=== PATIENT | female | born 1955 | race Caucasian/White ===

== ENCOUNTER 2022-10-12 06:21 | Inpatient (IN) | payer MEDICARE ==
[2022-10-12] MEDS ORDERED: Bupivacaine HCl 0.5%/Epinephrine 1:200,000/PF 30 ml Vial ONE (06:45)
[2022-10-12] MEDS ORDERED: SUGAMMADEX SODIUM 200 MG/2 ML VIAL ONE ×2 (07:10→09:34)
[2022-10-12] MEDS ORDERED: Famotidine/PF 20 mg/2ml Vial ONE (07:10)
[2022-10-12] MEDS ORDERED: fentaNYL 50 mcg/mL 1 mL Vial ONE ×5 (07:10→10:36)
[2022-10-12] MEDS ORDERED: Sodium Chloride 0.9% 100 ML ONE (07:26)
[2022-10-12] MEDS ORDERED: CEFAZOLIN 2 GM VIAL ONE (07:26)
[2022-10-12] MEDS ORDERED: Rocuronium Bromide 10 MG/ML (10ML VIAL) ONE (07:35)
[2022-10-12] MEDS ORDERED: PHENYLEPHRINE-NS 100 MCG/ML 10 ML SYRINGE ONE (07:35)
[2022-10-12] MEDS ORDERED: Lidocaine 1% PF 5 ML VIAL ONE (07:35)
[2022-10-12] MEDS ORDERED: PROPOFOL 200 MG/20 ML VIAL ONE (07:35)
[2022-10-12] MEDS ORDERED: ePHEDrine Sulfate 50 MG/10 ML VIAL ONE (07:35)
[2022-10-12] MEDS ORDERED: Ketorolac Tromethamine 30 MG/ML VIAL ONE (07:35)
[2022-10-12] MEDS ORDERED: Ondansetron PF 4 MG/2 ML Vial ONE (07:35)
[2022-10-12] MEDS ORDERED: Metoclopramide HCl 10 MG/2 ML VIAL ONE (07:35)
[2022-10-12] MEDS ORDERED: Promethazine HCl 25 MG/ML VIAL IM PRN ×3 (08:58→10:45)
[2022-10-12] MEDS ORDERED: Ondansetron HCl/PF 4 MG/2 ML Vial IVP PRN (08:58)
[2022-10-12] MEDS ORDERED: diphenhydrAMINE 50 MG/ML VIAL IVP PRN (09:32)
[2022-10-12] MEDS ORDERED: Ondansetron PF 4 MG/2 ML Vial IVP PRN ×2 (09:32→10:45)
[2022-10-12] MEDS ORDERED: Ipratropium/Albuterol 3 ML NEB NEB PRN (09:32)
[2022-10-12] MEDS ORDERED: Insulin Regular 300 UNITS/3 ML VIAL SC PRN (09:32)
[2022-10-12] MEDS ORDERED: hydrALAZINE 20 MG/ML VIAL SLOW IVP PRN (09:32)
[2022-10-12] MEDS ORDERED: Dextrose 5% in Water 1,000 ML IV PRN (09:32)
[2022-10-12] MEDS ORDERED: Dextrose 50% Abboject 50 ML SYRINGE SLOW IVP PRN (09:32)
[2022-10-12] MEDS ORDERED: Glucagon 1 MG/ML KIT IM PRN (09:32)
[2022-10-12] MEDS ORDERED: Insulin Regular 300 UNITS/3 ML VIAL ONE (09:47)
[2022-10-12] MEDS ORDERED: diphenhydrAMINE 25 MG CAP PO PRN (10:45)
[2022-10-12] MEDS ORDERED: Fentanyl CADD 100 ML IVPB SCH (10:45)
[2022-10-12] MEDS ORDERED: Naloxone HCl 0.4 mg/ml Vial IV PRN (10:45)
[2022-10-12] MEDS ORDERED: Zolpidem Tartrate 5 MG TAB PO PRN (10:45)
[2022-10-12] MEDS ORDERED: diphenhydrAMINE 50 MG/ML VIAL IM/IV PRN (10:45)
[2022-10-12] MEDS ORDERED: Ketorolac Tromethamine 30 MG/ML VIAL IVP SCH (12:00)
[2022-10-12] MEDS: Ketorolac Tromethamine 30 MG/ML VIAL IVP SCH ×2 (14:18→18:28)
[2022-10-12] MEDS: 1/2 NS w/KCL 20 mEq 1,000 ML IV SCH ×2 (14:53→18:08)
[2022-10-12] MEDS: CEFAZOLIN 2 GM in Sodium Chloride 0.9% 100 ML IVPB SCH ×2 (14:57→21:49)
[2022-10-12] MEDS: Sodium Chloride 0.9% 1,000 ML IV SCH (18:29)
[2022-10-13] MEDS: Ketorolac Tromethamine 30 MG/ML VIAL IVP SCH ×2 (00:06→05:57)
[2022-10-13] MEDS: Sodium Chloride 0.9% 1,000 ML IV SCH (04:14)
[2022-10-13 05:56] LABS: #Basophils 0.1 thou/uL (0.0-0.2); #Eosinphils 0.1 thou/uL (0.0-0.7); #Monocytes 0.5 thou/uL (0.11-0.59); #Neutrophils 3.7 thou/uL (1.40-6.50); %Basophils 0.8 % (0.0-1.0); %Eosinophils 1.9 % (0.0-10.0); %Lymphocytes 31.8 % (21.0-51.0); %Monocytes 7.3 % (0.0-10.0); %Neutrophils 57.7 % (42.0-75.0); Hemoglobin 9.1 g/dL (12.0-16.0); Mean Corpuscular Hemoglobin 25.6 pg (27.0-31.0); Mean Corpuscular Volume 82.6 fl (78.0-98.0); Mean Platelet Volume 9.1 fL (7.4-10.4); Platelet Count 218 10x3/uL (130-400); RBC Distribution Width 13.9 % (11.5-14.5); Red Blood Cell (RBC) Count 3.56 mill/uL (4.20-5.40); White Blood Cell (WBC) Count 6.3 10x3/uL (4.8-10.8)
[2022-10-13 06:27] LABS: Anion Gap 12 mmol/L (10-20); BUN (Urea Nitrogen) 8 mg/dL (9.8-20.1); Calc. Creatinine Clearance 0 mL/min (70-130); Calcium 7.9 mg/dL (7.8-10.44); Carbon Dioxide 21 mmol/L (23-31); Chloride 107 mmol/L (98-107); Estimated GFR 87; Glucose 236 mg/dL (80-115); Potassium 4.3 mmol/L (3.5-5.1); Sodium 136 mmol/L (136-145)
[2022-10-13] MEDS ORDERED: Pantoprazole 40 MG VIAL IVP SCH (09:00)
[2022-10-13 10:37] VITALS: BP 104/68; TEMP 97.8
== END 2022-10-13 09:52 | disposition home or self-care (01) | DRG 327 ==
LOC: SDC 06:21 → SJJU 13:09
PROVIDERS: ADMIT Surgery; ATTEND Surgery
PROC: 0BQT4ZZ Repair Diaphragm, Percutaneous Endoscopic Approach (ICD-10-PCS; principal; 2022-10-12)
PROC: 0DP64CZ Removal of Extraluminal Device from Stomach, Percutaneous Endoscopic Approach (ICD-10-PCS; 2022-10-12)
PROC: 8E0W4CZ Robotic Assisted Procedure of Trunk Region, Percutaneous Endoscopic Approach (ICD-10-PCS; 2022-10-12)
DX: K44.9 Diaphragmatic hernia without obstruction or gangrene (principal); K95.09 Other complications of gastric band procedure; K21.9 Gastro-esophageal reflux disease without esophagitis; K66.0 Peritoneal adhesions (postprocedural) (postinfection); Z98.84 Bariatric surgery status
CPT/HCPCS: 36415; 36416; 80048; 85025; 93005; 93010; 94760; J1815; J1885; J2405; J2704; J2765; J3010; J3480; J3490; J7050; S0028